=== PATIENT | male | born 1965 | race Caucasian/White ===

== ENCOUNTER 2016-10-16 08:24 | Day surgery (SDC) | payer BC ==
[~2016-10-16] VITALS: Ht 185.4 cm; Wt 84.8 kg
[2016-10-16 08:59] VITALS: Ht 185.4 cm; Wt 84.8 kg
[2016-10-16] MEDS ORDERED: CHOLESTEROL MED (09:07)
[2016-10-16 09:29] VITALS: BP 130/67; PULSE 72; RESP 22
[2016-10-16] MEDS ORDERED: FENTAnyl 50 MCG/ML VIAL ONE (10:19)
[2016-10-16] MEDS ORDERED: MIDAZOLAM 1 MG/ML 2 ML INJ ONE ×3 (10:19)
[2016-10-16 10:30] VITALS: BP 119/74; RESP 20
--- NOTE | 2016-10-16 11:55 | GILP ---
DATE OF PROCEDURE: 10/16/2016 PROCEDURES: 1. Esophagogastroduodenoscopy with biopsy. 2. Colonoscopy with biopsy. INDICATION: A 51-year-old male undergoing this procedure for heartburn and colon cancer screening. The risks of the procedure, related and unrelated complications, anesthetic risks, alternatives dis cussed and informed consent was obtained. DESCRIPTION OF PROCEDURE: The patient was brought to the GI lab, sedated with 6 mg of Versed and 10 0 mg of fentanyl. After optimal sedation, scope was passed with much ease into the esophagus which was grossly within normal limits. Z-line was at 40 cm. Stomach mucosa revealed gastritis. Three b iopsies obtained to rule out H. pylori infection. Retroversion in the stomach was normal. Duodenum both first and second part including ampulla was normal. Scope was removed with good patient stephanie ance. IMPRESSION: 1. Normal esophagus. 2. Z-line at 40 cm. 3. Gastritis. 4. Normal duodenum and ampulla. PLAN: Review histopathology. COLONOSCOPY: The patient was turned around, scope was passed with much ease into the rectum, advanc ed through sigmoid, descending, transverse colon all the way into cecum and finally into terminal il eum. There was a solitary ulcer in the terminal ileum, biopsied. Appendix was normal. Rest of the colon appeared normal. 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 Multiple diverticula seen in the left s madhavi of the colon. Descending colon also had an AVM 1 cm in diameter. Retroversion in the rectum wa s normal. IMPRESSION: 1. Diverticulosis on the left side. 2. 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 3. Ileal ulcer which was biopsied. 4. Normal retroversion 5. Clarity and cleanliness was good. PLAN: To stay on a high-fiber diet. We will review the histopathology of the ulcer. Dictated By: SASHA THACKER MD PJ/NTS Conf#: [id number] DID#: [id number] CC: NIKHIL MCCLAIN MD; SASHA THACKER MD;*EndCC*
== END 2016-10-16 10:35 | disposition home or self-care (01) ==
LOC: GIL 08:24
PROVIDERS: ATTEND Internal Medicine Gastroenterology
DX: Z12.11 Encounter for screening for malignant neoplasm of colon (principal); K29.50 Unspecified chronic gastritis without bleeding; K57.90 Diverticulosis of intestine, part unspecified, without perforation or abscess without bleeding; K63.3 Ulcer of intestine
CPT/HCPCS: 43239; 45380; 88305; 88312; J2250; J3010; Z7610